=== PATIENT | male | born 1995 | race African-American/Black ===

== ENCOUNTER 2023-03-31 20:57 | Emergency (ER) | payer BC, MEDICAID ==
[~2023-03-31] VITALS: Ht 177.8 cm; Wt 81.0 kg
[2023-03-31 21:25] VITALS: O2SAT 100
[2023-03-31] MEDS ORDERED: IBUPROFEN 600MG TABLET PO ONE (21:45)
[2023-04-01] MEDS ORDERED: IBUP-2029 MT (01:22)
[2023-04-01 01:40] VITALS: BP 94/46; PULSE 94; RESP 16; TEMP 98.2
== END 2023-04-01 01:40 | disposition home or self-care (01) ==
LOC: ER 20:57
DX: S83.91XA Sprain of unspecified site of right knee, initial encounter (principal); X58.XXXA Exposure to other specified factors, initial encounter; Y93.89 Activity, other specified; Y92.89 Other specified places as the place of occurrence of the external cause; Y99.8 Other external cause status
CPT/HCPCS: 73560; 99285; Z7610